=== PATIENT | female | born 1945 | race Caucasian/White ===

== ENCOUNTER 2024-07-13 10:14 | Inpatient (IN) | payer MEDICARE ==
[~2024-07-13] VITALS: Ht 157.5 cm; Wt 56.7 kg
[2024-07-13 10:49] LABS: BASOPHILS % (AUTO) 0.2 % (0.0-2.0); EOSINOPHILS # (AUTO) 0.2 K/uL (0.0-0.7); EOSINOPHILS % (AUTO) 2.8 % (0.0-6.0); HEMATOCRIT 40 % (33-45); HEMOGLOBIN 13.4 g/dL (11.5-14.8); LYMPHOCYTES # (AUTO) 2.2 K/uL (0.8-4.8); LYMPHOCYTES % (AUTO) 30.5 % (20.0-44.0); MEAN CORPUSCULAR HEMOGLOBIN 29 PG (26.0-33.0); MEAN CORPUSCULAR HGB CONC 33 g/dl (31.0-36.0); MEAN CORPUSCULAR VOLUME 86 fL (82-100); MONOCYTES # (AUTO) 0.5 K/uL (0.1-1.30); MONOCYTES % (AUTO) 6.9 % (2.0-12.0); NEUTROPHILS # (AUTO) 4.3 K/uL (1.8-8.9); NEUTROPHILS % (AUTO) 59.6 % (43.0-81.0); PLATELET COUNT (AUTO) 227 K/uL (150-450); RED BLOOD CELL COUNT(AUTO) 4.67 MIL/uL (4.0-5.2); RED CELL DISTRIBUTION WIDTH 12.9 % (11.5-15.0); WHITE BLOOD COUNT (AUTO) 7.3 K/uL (4.3-11.0)
[2024-07-13 11:01] LABS: CREATININE 0.9 mg/dL (0.6-1.3); POTASSIUM 3.5 mmol/L (3.5-5.1)
[2024-07-13 11:03] LABS: INR 0.97 (0.91-1.10); PROTHROMBIN TIME 10.3 SECS (9.2-11.1)
[2024-07-13] MEDS ORDERED: ACETAMINOPHEN 325 MG TABLET ONE (11:44)
[2024-07-13] MEDS: ACETAMINOPHEN 325 MG TABLET PO ONE (11:50)
[2024-07-13] MEDS ORDERED: MORPHINE SULFATE INJ 2 MG/ML DISP.SYRIN ONE (12:20)
[2024-07-13] MEDS: MORPHINE SULFATE INJ 2 MG/ML DISP.SYRIN IV ONE (12:33)
[2024-07-13] MEDS ORDERED: ONDANSETRON HCL/PF 4 MG/2 ML VIAL IVP PRN (14:30)
[2024-07-13] MEDS ORDERED: Z GUARD REMEDY 4 OZ OINT TP PRN (14:30)
[2024-07-13] MEDS ORDERED: MAGNESIUM HYDROXIDE 30 ML UDC PO PRN (14:30)
[2024-07-13] MEDS: MORPHINE SULFATE INJ 2 MG/ML DISP.SYRIN IV PRN (17:18)
[2024-07-13] MEDS ORDERED: LOSA50TA39 PO (19:16)
[2024-07-13] MEDS ORDERED: METO-357 PO (19:17)
[2024-07-13 20:00] VITALS: BP 135/75; TEMP 98.6; O2SAT 95
[2024-07-13] MEDS: METOPROLOL SUCCINATE 50 MG TAB.SR.24H PO SCH (20:00)
[2024-07-13] MEDS: LOSARTAN POTASSIUM 50 MG TABLET PO SCH (20:00)
[2024-07-13] MEDS ORDERED: FLUO40CR3 TP (20:11)
[2024-07-14] VITALS (8 sets, daily range): BP systolic 122–142; BP diastolic 68–78; TEMP 98–100.4; O2SAT 95–100
[2024-07-14 06:48] LABS: BASOPHILS % (AUTO) 0.1 % (0.0-2.0); EOSINOPHILS # (AUTO) 0.3 K/uL (0.0-0.7); EOSINOPHILS % (AUTO) 3.2 % (0.0-6.0); HEMATOCRIT 39 % (33-45); HEMOGLOBIN 13.2 g/dL (11.5-14.8); LYMPHOCYTES # (AUTO) 1.3 K/uL (0.8-4.8); MEAN CORPUSCULAR HEMOGLOBIN 29 PG (26.0-33.0); MEAN CORPUSCULAR HGB CONC 34 g/dl (31.0-36.0); MEAN CORPUSCULAR VOLUME 85 fL (82-100); MONOCYTES # (AUTO) 0.8 K/uL (0.1-1.30); MONOCYTES % (AUTO) 8.3 % (2.0-12.0); NEUTROPHILS # (AUTO) 7.1 K/uL (1.8-8.9); NEUTROPHILS % (AUTO) 74.4 % (43.0-81.0); PLATELET COUNT (AUTO) 207 K/uL (150-450); RED BLOOD CELL COUNT(AUTO) 4.54 MIL/uL (4.0-5.2); RED CELL DISTRIBUTION WIDTH 13.2 % (11.5-15.0); WHITE BLOOD COUNT (AUTO) 9.6 K/uL (4.3-11.0)
[2024-07-14 06:55] LABS: CALCIUM, SERUM 8.9 mg/dL (8.5-10.1); CREATININE 0.6 mg/dL (0.6-1.3); PHOSPHORUS 2.9 mg/dL (2.5-4.9); POTASSIUM 3.3 mmol/L (3.5-5.1)
[2024-07-14] MEDS: PANTOPRAZOLE 40 MG TABLET.DR PO SCH (07:30)
[2024-07-14 09:26] LABS: THYROID STIMULATING HORMONE 1.49 uIU/mL (0.358-3.74)
[2024-07-14] MEDS: POTASSIUM CL. PREMIX PERIPHER. 50 ML IV SCH (10:46)
[2024-07-14] MEDS ORDERED: GEMTESA PO (12:42)
[2024-07-14] MEDS ORDERED: ROSU10TA2 PO (12:42)
[2024-07-14] MEDS ORDERED: POLY15DR31 EACHEYE (12:42)
[2024-07-14] MEDS ORDERED: ESTR42.511 VG (12:42)
[2024-07-14] MEDS ORDERED: NITR50CA PO (12:42)
[2024-07-14] MEDS ORDERED: MULT-594 PO (12:42)
[2024-07-14] MEDS ORDERED: HYDR25TA4 PO (12:42)
[2024-07-14] MEDS ORDERED: BUPIVACAINE 0.25% 75 MG/30 ML VIAL ONE (16:14)
[2024-07-14] MEDS ORDERED: ANESTHESIA TRAY IN PYXIS 1 EA TRAY MC ONE (16:14)
[2024-07-14] MEDS ORDERED: VANCOMYCIN 1 GM VIAL ONE (16:14)
[2024-07-14] MEDS ORDERED: SEVOFLURANE 250 ML BOTTLE IH ONE (16:39)
[2024-07-14] MEDS ORDERED: FENTANYL PF 100MCG/2ML AMPUL ONE (16:39)
[2024-07-14] MEDS ORDERED: VASOPRESSIN INJ 20 UNIT/ML VIAL ONE (16:40)
[2024-07-14] MEDS ORDERED: MIDAZOLAM HCL 2 MG/2ML VIAL ONE (16:40)
[2024-07-14] MEDS: ACETAMINOPHEN 650 MG/SUPP.RECT RC PRN (16:42)
[2024-07-14] MEDS: CEFEPIME 2 GM in IV D5W 100 ML IV SCH (17:00)
[2024-07-14] MEDS ORDERED: TRANEXAMIC ACID 1,000 MG/10 ML VIAL ONE (17:30)
[2024-07-14 18:25] LABS: APPEARANCE,URINE CLEAR (CLEAR); BILIRUBIN,URINE NEGATIVE (NEGATIVE); BLOOD, URINE TRACE-INTA Ery/uL (NEGATIVE); COLOR,URINE YELLOW (YELLOW); KETONES,URINE NEGATIVE (NEGATIVE); LEUKOCYTE ESTERASE ,URINE 1+ (NEGATIVE); NITRITE, URINE NEGATIVE (NEGATIVE); PROTEIN,URINE NEGATIVE (NEGATIVE); UGLUCOSE NEGATIVE (NEGATIVE); UROBILINOGEN,URINE 0.2 EU/dL (0.2)
[2024-07-14 18:40] LABS: ADD URINE CULTURE YES; BACTERIA,URINE 2+ /HPF (None Seen)
[2024-07-14 18:41] LABS: MUCUS,URINE Few /LPF (None Seen)
[2024-07-14] MEDS ORDERED: HYDROMORPHONE 1 MG/1 ML DISP.SYRIN ONE (20:35)
[2024-07-14 20:40] LABS: HEMOGLOBIN 13.6 g/dL (11.5-14.8)
[2024-07-14] MEDS: HYDROMORPHONE 1 MG/1 ML DISP.SYRIN IV PRN (21:12)
[2024-07-15] VITALS: BP 140/71; TEMP 98.2; O2SAT 97
[2024-07-15] MEDS: CEFAZOLIN 2 GM in IV D5W 100 ML IV SCH (00:54)
[2024-07-15 06:52] LABS: BASOPHILS % (AUTO) 0.2 % (0.0-2.0); EOSINOPHILS % (AUTO) 0.3 % (0.0-6.0); HEMATOCRIT 36 % (33-45); HEMOGLOBIN 12.2 g/dL (11.5-14.8); LYMPHOCYTES # (AUTO) 0.8 K/uL (0.8-4.8); LYMPHOCYTES % (AUTO) 9.7 % (20.0-44.0); MEAN CORPUSCULAR HEMOGLOBIN 29 PG (26.0-33.0); MEAN CORPUSCULAR HGB CONC 34 g/dl (31.0-36.0); MEAN CORPUSCULAR VOLUME 86 fL (82-100); MONOCYTES # (AUTO) 1.1 K/uL (0.1-1.30); MONOCYTES % (AUTO) 13.7 % (2.0-12.0); NEUTROPHILS # (AUTO) 6.4 K/uL (1.8-8.9); NEUTROPHILS % (AUTO) 76.1 % (43.0-81.0); PLATELET COUNT (AUTO) 179 K/uL (150-450); RED BLOOD CELL COUNT(AUTO) 4.19 MIL/uL (4.0-5.2); RED CELL DISTRIBUTION WIDTH 13.1 % (11.5-15.0); WHITE BLOOD COUNT (AUTO) 8.4 K/uL (4.3-11.0)
[2024-07-15 07:05] LABS: ALBUMIN 3.1 g/dL (3.4-5.0); BILIRUBIN,TOTAL 0.6 mg/dL (0.2-1.0); CALCIUM, SERUM 8.4 mg/dL (8.5-10.1); CREATININE 0.6 mg/dL (0.6-1.3); MAGNESIUM 2.1 mg/dL (1.8-2.4); PHOSPHORUS 3.5 mg/dL (2.5-4.9); TOTAL PROTEIN, SERUM 6.4 g/dL (6.4-8.2)
[2024-07-15 08:00] VITALS: BP 123/68; TEMP 98; O2SAT 98
[2024-07-15] MEDS ORDERED: ENOX40DI SQ (14:59)
[2024-07-15] MEDS: ACETAMINOPHEN 325 MG TABLET PO PRN (15:51)
[2024-07-15 16:00] VITALS: BP 122/60; TEMP 99.7; O2SAT 100
[2024-07-15 16:50] VITALS: TEMP 99.3
[2024-07-15 17:05] VITALS: BP 122/60
[2024-07-15] MEDS ORDERED: ENOXAPARIN SODIUM 40 MG/0.4 ML DISP.SYRIN SQ SCH (21:00)
== END 2024-07-15 18:45 | DRG 481 ==
LOC: ER 10:14 → MED 12:52
PROVIDERS: ADMIT Nurse Practitioner Family; ATTEND Nurse Practitioner Acute Care
PROC: 0QS706Z Reposition Left Upper Femur with Intramedullary Internal Fixation Device, Open Approach (ICD-10-PCS; principal; 2024-07-14 17:00)
DX: S72.142A Displaced intertrochanteric fracture of left femur, initial encounter for closed fracture (principal); N39.0 Urinary tract infection, site not specified; W01.0XXA Fall on same level from slipping, tripping and stumbling without subsequent striking against object, initial encounter; N32.81 Overactive bladder; I10 Essential (primary) hypertension; E78.5 Hyperlipidemia, unspecified; Z96.641 Presence of right artificial hip joint; Y93.9 Activity, unspecified; Y92.009 Unspecified place in unspecified non-institutional (private) residence as the place of occurrence of the external cause; R79.89 Other specified abnormal findings of blood chemistry; Z20.822 Contact with and (suspected) exposure to COVID-19
CPT/HCPCS: 36415; 71045-TC; 72170-TC; 72192-TC; 73502; 73552; 73564-TC; 80048-TC; 80053-TC; 80061-TC; 81001; 82962-TC; 83735-TC; 84100-TC; 84439-TC; 84443-TC; 85025-TC; 85027-TC; 85730-TC; 86850-TC; 87040-TC; 87086-TC; 93307-TC; 97110-TC; 97116-TC; 97530-TC; A4223; G0378; J0690; J0692; J1100; J1171; J2250; J2270; J2405; J2704; J3010; J3370; J3480; J3490; J7030; J7040; J7050; J7060